=== PATIENT | male | born 1990 | race Caucasian/White ===

== ENCOUNTER 2016-09-17 17:25 | Emergency (ER) | payer MEDICAID ==
[~2016-09-17] VITALS: Ht 167.6 cm; Wt 65.3 kg
[2016-09-17 18:14] LABS: microscopic required? NO
[2016-09-17 18:23] LABS: urine erythrocyte NEGATIVE (NEGATIVE)
[2016-09-17 19:10] VITALS: BP 132/87
== END 2016-09-17 19:10 | disposition home or self-care (01) ==
LOC: ED 17:25 → EDBD 17:25 → ED 19:10
PROVIDERS: Emergency Medicine
DX: N39.0 Urinary tract infection, site not specified (principal); F17.210 Nicotine dependence, cigarettes, uncomplicated; F12.929 Cannabis use, unspecified with intoxication, unspecified; F15.99 Other stimulant use, unspecified with unspecified stimulant-induced disorder
CPT/HCPCS: 87491; 87591; J0696